=== PATIENT | male | born 1955 | race Caucasian/White ===

== ENCOUNTER 2019-03-04 04:37 | Inpatient (IN) ==
[2019-03-04] MEDS ORDERED: diphenhydrAMINE 50 MG/1 ML VIAL IM STA (06:40)
[2019-03-04] MEDS ORDERED: PROMETHAZINE 25 MG/1 ML VIAL IM STA (06:40)
[2019-03-04] MEDS ORDERED: diphenhydrAMINE 50 MG/1 ML VIAL IV STA (06:52)
[2019-03-04 06:54] LABS: Basophils # 0.1 10*3/uL (0.0-0.2); Basophils % 0.5 % (0.0-0.8); Eosinophils # 0.3 10*3/uL (0.0-0.87); Eosinophils % 2.7 % (0.00-10.9); Hematocrit 40.9 VOL% (42.0-52.0); Hemoglobin 12.4 GM/DL (14.0-18.0); Immature Granulocytes % 0.2 %; Immature Granulocytes Absolute 0.03 #; Lymphocytes # 2.9 10*3/uL (1.4-4.0); Lymphocytes % 23.6 % (21.2-54.2); Mean Corpuscular HGB Conc 30.3 GM/DL (32-36); Mean Platelet Volume 11.7 FL (9.6-12.0); Monocytes % 11.7 % (1.7-12.7); Neutrophils % 61.3 % (38.7-73.9); Platelet Count 321 T/CUMM (130-400); Red Blood Count 4.65 MC/CUMM (3.8-5.5); Red Cell Distribution Width 15.3 % (9.3-17.3); White Blood Count 12.1 T/CUMM (4-12)
[2019-03-04 06:59] LABS: Calcium 9.3 MG/DL (8.5-10.1); Osmolality,Calculated 282.3 MOS/KG (273-304)
[2019-03-04] MEDS ORDERED: HYDROmorphone 2 MG/1 ML VIAL ONE (07:40)
[2019-03-04] MEDS ORDERED: HYDROmorphone 2 MG/1 ML VIAL IV STA ×3 (07:44→08:01)
[2019-03-04 08:11] LABS: INR 0.9; Partial Thromboplastin Time 26.7 SECS (20.8-36.0)
[2019-03-04 10:37] LABS: Lymphocytes,CSF 70 %; Monocytes,CSF 10 %; Neutrophils,CSF 20 %
[2019-03-04 10:38] LABS: Appearance,CSF Clear; Red Blood Cell,CSF 28 C/CUMM; White Blood Cell,CSF 9 C/CUMM
[2019-03-04] MEDS ORDERED: methylPREDNISolone SOD SUC 125 MG/2 ML VIAL IV STA (11:53)
[2019-03-04] MEDS ORDERED: ONDANSETRON 4 MG/2 ML VIAL IV PRN (11:55)
[2019-03-04] MEDS ORDERED: ZIPRASIDONE 20 MG/1 ML VIAL IM ONE (16:54)
[2019-03-04] MEDS: PREGABALIN 75 MG CAPSULE PO SCH ×2 (18:38→20:40)
[2019-03-04] MEDS: ENOXAPARIN 40 MG/0.4 ML SYRINGE SUBCUT SCH (20:39)
[2019-03-04] MEDS: BACLOFEN 10 MG TABLET PO SCH (20:40)
[2019-03-04] MEDS: traZODone 50 MG TABLET PO SCH (20:40)
[2019-03-05 06:07] LABS: Basophils % 0.1 % (0.0-0.8); Hematocrit 39.2 VOL% (42.0-52.0); Hemoglobin 11.8 GM/DL (14.0-18.0); Immature Granulocytes % 0.5 %; Immature Granulocytes Absolute 0.05 #; Lymphocytes % 18.6 % (21.2-54.2); Mean Corpuscular HGB Conc 30.1 GM/DL (32-36); Mean Corpuscular Volume 87.9 FL (87-102); Mean Platelet Volume 10.4 FL (9.6-12.0); Monocytes % 6.1 % (1.7-12.7); Neutrophils % 74.7 % (38.7-73.9); Platelet Count 298 T/CUMM (130-400); Red Blood Count 4.46 MC/CUMM (3.8-5.5); Red Cell Distribution Width 15.3 % (9.3-17.3); White Blood Count 10.9 T/CUMM (4-12)
[2019-03-05 06:24] LABS: Calcium 9.4 MG/DL (8.5-10.1); Osmolality,Calculated 285.3 MOS/KG (273-304)
[2019-03-05 07:15] LABS: Sedimentation Rate-Westergren 31 MM/HR (0-20)
[2019-03-05] MEDS ORDERED: cefTRIAXone 1,000 MG in SYRINGE 1 EACH IV SCH (13:30)
[2019-03-05] MEDS ORDERED: INFLUENZA VIRUS VACCINE 0.5 ML SYRINGE IM ONE (13:46)
[2019-03-05] MEDS: KETOROLAC 30 MG/1 ML VIAL IV PRN ×2 (14:22→22:32)
[2019-03-05] MEDS: TAMSULOSIN 0.4 MG CAPSULE PO SCH (15:00)
[2019-03-05] MEDS: BACLOFEN 10 MG TABLET PO SCH ×2 (15:01→20:33)
[2019-03-05] MEDS: PREGABALIN 75 MG CAPSULE PO SCH ×3 (15:01→20:34)
[2019-03-05] MEDS: PANTOPRAZOLE 40 MG TABLET PO SCH (15:01)
[2019-03-05] MEDS: predniSONE 20 MG TABLET PO SCH ×2 (15:01→20:33)
[2019-03-05] MEDS ORDERED: cefTRIAXone 2,000 MG in SYRINGE 1 EACH IV SCH (16:00)
[2019-03-05] MEDS ORDERED: cefTRIAXone 1,000 MG in SYRINGE 1 EACH IV ONE (17:30)
[2019-03-05] MEDS: PROMETHAZINE 25 MG/1 ML VIAL IM PRN (19:41)
[2019-03-05] MEDS: traZODone 50 MG TABLET PO SCH (20:33)
[2019-03-05 22:18] LABS: Apearance,Urine CLEAR (Clear); Bilirubin,Urine Negative (Negative); Blood, Urine Negative (Negative); Glucose,Urine (UA) Negative (Negative); Ketones,Urine Negative (Negative); Mucus,Urine Occasional /LPF (Occasional); Nitrite,Urine Negative (Negative); Protein,Urine Negative; RBC,Urine <1 /HPF (0-4); Urine Color Yellow (Yellow); Urine Specific Gravity 1.021 (1.001-1.035); Urine Urobilinogen < 2.0 EU/DL (0.2-1.0); WBC,Urine <1 /HPF (0-6)
[2019-03-05] MEDS: ENOXAPARIN 40 MG/0.4 ML SYRINGE SUBCUT SCH (22:31)
[2019-03-06 03:59] LABS: Basophils % 0.1 % (0.0-0.8); Hematocrit 38.1 VOL% (42.0-52.0); Hemoglobin 11.7 GM/DL (14.0-18.0); Immature Granulocytes % 0.7 %; Lymphocytes # 1.4 10*3/uL (1.4-4.0); Lymphocytes % 9.8 % (21.2-54.2); Mean Corpuscular HGB Conc 30.7 GM/DL (32-36); Mean Corpuscular Volume 86.8 FL (87-102); Mean Platelet Volume 11.1 FL (9.6-12.0); Monocytes % 2.9 % (1.7-12.7); Neutrophils % 86.5 % (38.7-73.9); Platelet Count 310 T/CUMM (130-400); Red Blood Count 4.39 MC/CUMM (3.8-5.5); Red Cell Distribution Width 15.5 % (9.3-17.3); White Blood Count 14.4 T/CUMM (4-12)
[2019-03-06 04:09] LABS: Calcium 9.1 MG/DL (8.5-10.1); Osmolality,Calculated 291.1 MOS/KG (273-304)
[2019-03-06 08:06] LABS: Sedimentation Rate-Westergren 38 MM/HR (0-20)
[2019-03-06] MEDS: TAMSULOSIN 0.4 MG CAPSULE PO SCH (09:21)
[2019-03-06] MEDS: predniSONE 20 MG TABLET PO SCH ×2 (09:22→20:57)
[2019-03-06] MEDS: PANTOPRAZOLE 40 MG TABLET PO SCH (09:22)
[2019-03-06] MEDS: BACLOFEN 10 MG TABLET PO SCH ×2 (09:23→20:57)
[2019-03-06] MEDS: PREGABALIN 75 MG CAPSULE PO SCH ×3 (09:23→20:57)
[2019-03-06] MEDS: KETOROLAC 30 MG/1 ML VIAL IV PRN (14:02)
[2019-03-06] MEDS: PROMETHAZINE 25 MG/1 ML VIAL IM PRN (14:02)
[2019-03-06] MEDS: amLODIPine 5 MG TABLET PO SCH (15:03)
[2019-03-06] MEDS ORDERED: cefTRIAXone 2,000 MG in SYRINGE 1 EACH IV SCH ×2 (18:00→21:00)
[2019-03-06] MEDS: traZODone 50 MG TABLET PO SCH (20:57)
[2019-03-06] MEDS: ENOXAPARIN 40 MG/0.4 ML SYRINGE SUBCUT SCH (21:00)
[2019-03-07] MEDS: KETOROLAC 30 MG/1 ML VIAL IV PRN ×2 (00:03→11:08)
[2019-03-07 05:34] LABS: Basophils % 0.1 % (0.0-0.8); Immature Granulocytes % 0.8 %; Immature Granulocytes Absolute 0.12 #; Lymphocytes # 1.7 10*3/uL (1.4-4.0); Lymphocytes % 10.9 % (21.2-54.2); Mean Corpuscular HGB Conc 29.7 GM/DL (32-36); Mean Corpuscular Volume 89.6 FL (87-102); Mean Platelet Volume 11.4 FL (9.6-12.0); Monocytes % 4.3 % (1.7-12.7); Neutrophils % 83.9 % (38.7-73.9); Platelet Count 308 T/CUMM (130-400); Red Blood Count 4.13 MC/CUMM (3.8-5.5); Red Cell Distribution Width 15.7 % (9.3-17.3); White Blood Count 15.6 T/CUMM (4-12)
[2019-03-07 06:00] LABS: Calcium 8.2 MG/DL (8.5-10.1)
[2019-03-07 06:36] LABS: Sedimentation Rate-Westergren 28 MM/HR (0-20)
[2019-03-07] MEDS: BACLOFEN 10 MG TABLET PO SCH (08:35)
[2019-03-07] MEDS: TAMSULOSIN 0.4 MG CAPSULE PO SCH (08:35)
[2019-03-07] MEDS: PREGABALIN 75 MG CAPSULE PO SCH (08:35)
[2019-03-07] MEDS: predniSONE 20 MG TABLET PO SCH (08:36)
[2019-03-07] MEDS: PANTOPRAZOLE 40 MG TABLET PO SCH (08:36)
[2019-03-07] MEDS: amLODIPine 5 MG TABLET PO SCH (08:36)
[2019-03-07 12:11] VITALS: BP 135/83
== END 2019-03-07 14:48 | disposition home or self-care (01) | DRG 103 ==
LOC: EDBD → EDUNIT# → N.EDINP 04:37 → N.ED 04:37 → N.EDINP 13:00 → N.2W 13:31 → N.4E 03-06 13:18
PROVIDERS: ADMIT Emergency Medicine; ATTEND Emergency Medicine